=== PATIENT | female | born 1980 | race Caucasian/White ===

== ENCOUNTER 2017-10-25 09:34 | Emergency (ER) | payer OTHER, MEDICAID ==
[2017-10-25] MEDS: KETOROLAC 15 MG INJ IV (10:47)
[2017-10-25] MEDS: SOD CHLORIDE 0.9% 500 ML IV (10:47)
[2017-10-25 10:56] LABS: ADD MAN DIFF? NO
[2017-10-25 10:59] LABS: WHITE BLOOD COUNT 10.9 10^3/ul (4.8-10.8)
[2017-10-25 10:59] LABS: BASOPHILS % 0.4 % (0.0-2.0); EOSINOPHILS # 0.1 10^3/ul (0.0-0.5); HEMOGLOBIN 14.4 g/dl (12.0-16.0); LYMPHOCYTES # 3.3 10^3/ul (0.8-2.9); LYMPHOCYTES % 29.8 % (15.0-51.0); MEAN CORPUSCULAR HEMOGLOBIN 28.3 pg (29.0-33.0); MEAN CORPUSCULAR HGB CONC 32.7 g/dl (32.0-37.0); MEAN CORPUSCULAR VOLUME 86.6 fl (82.0-101.0); MEAN PLATELET VOLUME 12.1 fl (7.4-10.4); MONOCYTE # 0.7 10^3/ul (0.3-0.9); MONOCYTES % 6.1 % (0.0-11.0); NEUTROPHIL # 6.8 10^3/ul (1.6-7.5); NEUTROPHILS % 62.3 % (39.0-77.0); PLATELET COUNT 243 10^3/UL (140-415); RED BLOOD COUNT 5.08 10^6/ul (4.20-5.40); RED CELL DISTRIBUTION WIDTH 13.1 % (11.5-14.5)
[2017-10-25 11:17] LABS: ANION GAP 14 (8-16); BLOOD UREA NITROGEN 16 mg/dl (7-20); CALCIUM 9.7 mg/dl (8.4-10.2); CARBON DIOXIDE 30 mmol/L (21-31); CHLORIDE 101 mmol/L (97-110); CREATININE 0.79 mg/dl (0.44-1.00); GLUCOSE 106 mg/dl (70-220); POTASSIUM 4.8 mmol/L (3.5-5.1); SODIUM 140 mmol/L (135-144)
[2017-10-25 11:32] LABS: TROPONIN-I < 0.012 ng/ml (0.000-0.120)
[2017-10-25] MEDS: ONDANSETRON (ODT) 4 MG TAB ODT (12:53)
[2017-10-25] MEDS: SUMATRIPTAN 6 MG/0.5 ML INJ SC (12:54)
== END 2017-10-25 14:01 | disposition home or self-care (01) ==
LOC: FTE 09:34
DX: H53.8 Other visual disturbances (principal); G43.109 Migraine with aura, not intractable, without status migrainosus; R07.9 Chest pain, unspecified
CPT/HCPCS: 36415; 80048; 81025; 82962; 84484; 85025; 93005; 96372; 96374; 99284-25